=== PATIENT | female | born 1990 | race Caucasian/White ===

== ENCOUNTER 2016-06-05 18:36 | Outpatient (CLI) | payer MEDICAID ==
--- NOTE | 2016-06-06 15:02 | US ---
EXAM DATE: 06/05/16 PATIENT'S AGE: 26 Patient: RADHA WEEKS Facility: [place], [place] Site . Site : 1990 Study: US OB Pelvis [id number]/28/2017 11:57:21 PM Ordering Physician: Dave Gagnon Final Report: CLINICAL HISTORY: Cervical length. TECHNIQUE: Real time schroeder scale imaging of the fetus was performed. FINDINGS: Sonographic imaging demonstrates a single living intrauterine gestation. Fetus demonstrates a regular cardiac rate of 137 beats per minute. Cervical length measures 4 centimeters. The cervix is closed. IMPRESSION: Cervical length measures 4 cm Dictated by Niurka Doyle MD @ Jun 06 2016 8:30AM (Electronic Signature) Report Signed by Proxy and Original Signed Document filed in the Medical Record. JOSE GUADALUPE
== END 2016-06-05 22:25 | disposition home or self-care (01) ==
LOC: MW.OBCHECK 18:36 → MW.OB 18:38 → MW.OBCHECK 22:25
PROVIDERS: ATTEND Obstetrics & Gynecology
DX: O26.892 Other specified pregnancy related conditions, second trimester (principal); R10.9 Unspecified abdominal pain; Z3A.24 24 weeks gestation of pregnancy
CPT/HCPCS: 59025; 76817; 76817-26; 81001; 87086; 87480; 87491; 87510; 87591; 87660

== ENCOUNTER 2016-09-28 03:46 | Inpatient (IN) | payer OTHER, MEDICAID ==
[2016-09-28] MEDS ORDERED: Misoprostol 200 MCG Tab PO PRN (08:16)
[2016-09-28] MEDS ORDERED: Lidocaine 1% 50 ML MDV INJECT PRN (08:16)
[2016-09-28] MEDS ORDERED: Methylergonovine 0.2 MG/1 ML Amp IM PRN (08:16)
[2016-09-28] MEDS ORDERED: Sodium Chloride 0.9% 2.5 ML Syringe FLUSH PRN (08:16)
[2016-09-28] MEDS ORDERED: Water For Irrigation,Sterile 1,000 ML Container IRR PRN (08:16)
[2016-09-28] MEDS ORDERED: Nalbuphine 10 MG/1 ML Vial IVPUSH PRN (08:16)
[2016-09-28] MEDS ORDERED: Butorphanol 1 MG/ML SDV IVPUSH PRN (08:16)
[2016-09-28] MEDS ORDERED: Sodium Chloride 0.9% 10 ML Syringe FLUSH PRN (08:16)
[2016-09-28] MEDS ORDERED: Carboprost Tromethamine 250 MCG/1 ML Amp IM PRN (08:16)
[2016-09-28] MEDS ORDERED: Oxytocin/Lactated Ringers 30 UNIT/500 ML BAG IV SCH ×2 (08:30→15:15)
[2016-09-28] MEDS: Lactated Ringers 1,000 ML IV SCH ×3 (08:41→15:00)
[2016-09-28] MEDS ORDERED: fentaNYL 100 MCG/2 ML SDV ONE (09:00)
[2016-09-28] MEDS ORDERED: Ropivacaine HCl/PF 100 ML ONE (09:00)
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
[2016-09-28] MEDS ORDERED: Terbutaline 1 MG/ML SDV SUBCUT PRN (15:04)
[2016-09-28] MEDS ORDERED: Acetaminophen 325 MG Tab PO ONE (20:50)
[2016-09-29] MEDS ORDERED: Acetaminophen 500 MG Tab PO PRN (01:14)
[2016-09-29] MEDS ORDERED: oxyCODONE 5 MG Tab PO PRN (01:14)
[2016-09-29] MEDS ORDERED: Lanolin 100% Cream 7 GM Tube TOP PRN (01:14)
[2016-09-29] MEDS ORDERED: Bisacodyl 10 MG Supp RECTAL PRN (01:14)
[2016-09-29] MEDS ORDERED: Docusate Sodium 100 MG Cap PO PRN (01:14)
[2016-09-29] MEDS: Ibuprofen 800 MG Tab PO PRN ×2 (02:42→11:22)
[2016-09-29] MEDS: Benzocaine/Menthol 20%-0.5% Spray 78 GM Cannister TOP PRN (02:56)
[2016-09-29] MEDS: Witch Hazel Medicated Pads 40/Jar TOP PRN (02:57)
--- NOTE | 2016-09-29 07:59 | OR ---
SURGEON: Cheyanne Eden DATE OF PROCEDURE: 09/29/2016 PRE-DELIVERY HISTORY: This is a 26-year-old, G1, who presented to Labor and Delivery with painful regular uterine contractions. The patient was observed to make cervical change from 3 cm to 4 cm at admission. The patient was noted to be 40 weeks and 6 days on admission. heart tracing was significant for category 1 status and reactive, and the patient was tad anywhere from 2 to 4 minutes. The patient did undergo amniotomy at admission and was found to have meconium- stained amniotic fluids. The patient eventually did receive an epidural. On further cervical exams, the patient's cervix was noted to not have made significant cervical place change roof bolter several exams, and the patient's labor was augmented with IV Pitocin at 5 to 6 cm. The patient eventually did progress to complete status and started maternal expulsive efforts after feeling a continuous rectal-type pressure. PREOPERATIVE DIAGNOSES: 1. Intrauterine at 41 weeks. 2. GBS negative. 3. Augmented labor. POSTOPERATIVE DIAGNOSES: 1. Intrauterine at 41 weeks. 2. Delivered status. 3. Midline second-degree perineal laceration. 4. GBS negative. 5. Augmented labor. PROCEDURES PERFORMED: 1. Spontaneous-assisted vaginal delivery. 2. Repair of midline second-degree perineal laceration. ANESTHESIA: Epidural and local. ESTIMATED BLOOD LOSS: 350 mL. FINDINGS: Viable male infant in vertex presentation with score of 8 and 9 at 1 and 5 minutes respectively and weight of 3880 grams. Normal intact placenta with 3- vessel cord. Midline second-degree perineal laceration. COMPLICATIONS: None known. DISPOSITION: Mom and tolerated the procedure well. DESCRIPTION OF PROCEDURE: This female, under epidural anesthesia, delivered a viable male with score of 8 and 9 at 1 and 5 minutes respectively and weight of 3880 grams. Delivery was via spontaneous-assisted vaginal delivery with in vertex presentation. Upon delivery of vertex, the neck was checked. There was no nuchal to be reduced and with gentle downward traction, anterior shoulder was delivered followed by the body. The infant was bulb suctioned at delivery and was found to have excellent tone and eventually had spontaneous cry. At maternal request, was placed directly on mom's abdomen. While placing baby on mom's abdomen, it was noted that the cord was wrapped around the 's left wrist twice and it was eventually reduced. Cord was clamped and cut after pulsation ceased at maternal request. Cord blood was collected and sent for analysis. After delivery of infant, IV Pitocin was given in bolus fashion as an uterotonic to prevent excessive maternal blood loss and to help expel the placenta. With signs of placental separation, fundal massage was completed along with traction on the umbilical cord, and a normal intact placenta with 3-vessel cord was delivered. After delivery of placenta, the patient was noted to have some excess bleeding, so the fundus was vigorously massaged. The patient also underwent a pelvic exam which was significant just for, what was felt to be, a minimally-contracted lower uterine segment. Uterus was noted to be firm. This happened twice, and the patient did receive 1 dose of IM Methergine. This happened one more time after. The fundus was continued to be massaged. Eventually, bleeding was within normal limits for lochia. After delivery of the infant and placenta, the vagina, perineum, and rectum were explored. The patient had midline second- degree perineal laceration. The irregular tear laceration was repaired with 4-0 Vicryl suture in a subcuticular fashion, and the midline second-degree perineal laceration was repaired with 3-0 Vicryl suture in the usual 3-layer fashion. After repair, the lower uterine segment and vagina were cleared of all clots and debris. The patient was cleansed, pads were changed, and the bed was returned to functioning status. The patient and tolerated the procedure well. Sponge, lap, needle, and instrument counts were correct. AIDAN / CONOR /[id number] JOSE GUADALUPE
--- NOTE | 2016-09-29 10:04 | PCM48HPAN ---
Post Anesthesia Note - EVALUATION WITHIN 48HRS OF ANESTHETIC Vital Signs in Normal Range: Yes Patient Participated in Evaluation: Yes Respiratory Function Stable: Yes Airway Patent: Yes Cardiovascular Function Stable: Yes Hydration Status Stable: Yes Pain Control Satisfactory: Yes Nausea and Vomiting Control Satisfactory: Yes Mental Status Recovered: Yes
[2016-09-30] MEDS: Ibuprofen 800 MG Tab PO PRN ×3 (00:41→20:45)
--- NOTE | 2016-09-30 07:30 | PCM.PNPP ---
- General Info Date of Service: 09/30/16 Functional Status: Reports: Pain Controlled, Tolerating Diet, Ambulating, Urinating - Review of Systems General: Reports: No Symptoms HEENT: Reports: No Symptoms Pulmonary: Reports: No Symptoms Cardiovascular: Reports: No Symptoms Gastrointestinal: Reports: No Symptoms Genitourinary: Reports: No Symptoms Musculoskeletal: Reports: No Symptoms Skin: Reports: No Symptoms Neurological: Reports: No Symptoms Psychiatric: Reports: No Symptoms - General Info Date of Service: 09/30/16 - Patient Data Vital Signs - most recent: Last Vital Signs Temp 36.2 C 09/30/16 04:00 Pulse 89 09/30/16 04:00 Resp 15 09/30/16 04:00 BP 97/65 09/30/16 04:00 Pulse Ox 97 09/30/16 04:00 Weight - most recent: 64.864 kg Lab Results - last 24 hrs: Laboratory Results - last 24 hr 09/30/16 Range/Units 06:02 Hgb 10.6 L (12.0-16.0) g/dL Hct 31.2 L (36.0-46.0) % Med Orders - Current: Current Medications Acetaminophen (Tylenol Extra Strength) 500 mg PO Q4H PRN PRN Reason: Pain Last Admin: 09/29/16 14:39 Dose: 500 mg Benzocaine/Menthol (Dermoplast Pain Relief 20%-0.5% [place]) 78 gm TOP ASDIRECTED PRN PRN Reason: Perineal Comfort Measure Last Admin: 09/29/16 02:56 Dose: 1 spray Bisacodyl (Dulcolax) 10 mg RECTAL .ONCE PRN PRN Reason: Constipation Butorphanol Tartrate (Stadol) 1 mg IVPUSH Q1H PRN PRN Reason: Pain Last Admin: 09/28/16 08:30 Dose: 1 mg Carboprost Tromethamine (Hemabate Ds) 250 mcg IM ASDIRECTED PRN PRN Reason: Post Hemorrhage Docusate Sodium (Colace) 100 mg PO BID PRN PRN Reason: Constipation Emollient Ointment (Lansinoh Hpa) 0 gm TOP ASDIRECTED PRN PRN Reason: Sore Nipples Lactated Ringer's (Ringers, Lactated) 1,000 mls @ 150 mls/hr IV ASDIRECTED MASOOD Last Admin: 09/28/16 15:00 Dose: 999 mls/hr Oxytocin/Lactated Ringer's (Pitocin In Lr 30 Units/500 Ml) 30 unit in 500 mls @ 2 mls/hr IV TITRATE MASOOD; 2 MUNITS/MIN PRN Reason: Protocol Last Titration: 09/29/16 00:05 Dose: 500 munits/min, 500 mls/hr Ibuprofen (Motrin) 800 mg PO Q6H PRN PRN Reason: Pain Last Admin: 09/30/16 00:41 Dose: 800 mg Lidocaine HCl (Xylocaine 1%) 50 ml INJECT .ONCE PRN PRN Reason: Laceration repair Last Admin: 09/29/16 00:19 Dose: 50 ml Methylergonovine Maleate (Methergine) 0.2 mg IM ASDIRECTED PRN PRN Reason: Post Hemorrhage Last Admin: 09/29/16 00:13 Dose: 0.2 mg Misoprostol (Cytotec) 200 mcg PO .ONCE PRN PRN Reason: Post Hemorrhage Oxycodone HCl (Oxycodone) 5 mg PO Q2H PRN PRN Reason: Pain Sodium Chloride (Saline Flush) 10 ml FLUSH ASDIRECTED PRN PRN Reason: Keep Vein Open Sodium Chloride (Saline Flush) 2.5 ml FLUSH ASDIRECTED PRN PRN Reason: Keep Vein Open Sterile Water (Sterile Water For Irrigation) 1,000 ml IRR ASDIRECTED PRN PRN Reason: delivery Last Admin: 09/29/16 00:05 Dose: 1,000 ml Terbutaline Sulfate (Brethine) 0.25 mg SUBCUT ASDIRECTED PRN PRN Reason: Tacysystole Witch Margarita (Tucks) 1 pad TOP ASDIRECTED PRN PRN Reason: comfort care Last Admin: 09/29/16 02:57 Dose: 1 applic Discontinued Medications Acetaminophen (Tylenol) 650 mg PO NOW ONE Stop: 09/28/16 20:51 Last Admin: 09/28/16 21:11 Dose: 650 mg Fentanyl (Sublimaze) Confirm Administered Dose 100 mcg .ROUTE .STK-MED ONE Stop: 09/28/16 09:01 Last Admin: 09/29/16 21:01 Dose: Not Given Oxytocin/Lactated Ringer's (Pitocin In Lr 30 Units/500 Ml) 30 unit in 500 mls @ 250 mls/hr IV TITRATE MASOOD PRN Reason: 250 MUNITS/MIN Stop: 09/28/16 10:29 Last Admin: 09/29/16 21:00 Dose: Not Given Ropivacaine (Naropin 0.2%) Confirm Administered Dose 100 mls @ as directed .ROUTE .STK-MED ONE Stop: 09/28/16 09:01 Last Admin: 09/29/16 21:01 Dose: Not Given Ropivacaine/Fentanyl/NS (Fentanyl 2 Mcg-Ropiv 0.2%-Ns) Confirm Administered Dose 100 mls @ as directed .ROUTE .STK-MED ONE Stop: 09/28/16 17:19 Last Admin: 09/29/16 21:01 Dose: Not Given Nalbuphine HCl (Nubain) 10 mg IVPUSH Q1H PRN PRN Reason: Pain (severe 7-10) Stop: 09/28/16 10:17 - Interaction Infant Disposition, : [place] in Room with Family Infant Interaction: Holding Infant Infant Feeding: Attempted ; Nursed Fair/Poor Support Person: Significant Other - Recovery Exam Fundal Tone: Firm Fundal Level: 1 Fingerbreadths Below Umbilicus Fundal Placement: Midline Lochia Amount: Scant Lochia Color: Rubra/Red Perineum Description: Other (see below) Other Perinuem Description: 2nd degree laceration Episiotomy/Laceration: Approximated Bladder Status: Voiding - Exam General: alert, oriented Neck: supple Lungs: Clear to Auscultation, Normal Respiratory Effort Cardiovascular: Regular Rate, Regular Rhythm GI/Abdominal Exam: Normal Bowel Sounds, Soft, Non-Tender Extremities: Normal Inspection, Normal Range of Motion, Non-Tender Skin: warm, dry, intact Neurological: no new focal deficit Psy/Mental Status: alert, normal affect, normal mood - Problem List & Annotations (1) Vaginal delivery SNOMED Code(s): 888549911 Code(s): O80 - ENCOUNTER FOR FULL-TERM UNCOMPLICATED DELIVERY Status: Acute Current Visit: Yes - Problem List Review Problem List Initiated/Reviewed/Updated: Yes - My Orders Last 24 Hours: My Active Orders 09/29/16 Breakfast Regular Diet [DIET] - Assessment Assessment:: PPD#1 S/p SAVD Doing well [place] having problems nursing Unsure if she desires discharge home today or tomorrow - Plan Plan:: Increase ambulation Routine pp care Pt will let us know if she desires to go home today
[2016-10-01] MEDS: Ibuprofen 800 MG Tab PO PRN (04:27)
--- NOTE | 2016-10-01 07:14 | PCM.PNPP ---
- General Info Date of Service: 10/01/16 Functional Status: Reports: Pain Controlled, Tolerating Diet, Ambulating, Urinating - Review of Systems General: Reports: No Symptoms HEENT: Reports: No Symptoms Pulmonary: Reports: No Symptoms Cardiovascular: Reports: No Symptoms Gastrointestinal: Reports: No Symptoms Genitourinary: Reports: No Symptoms Musculoskeletal: Reports: No Symptoms Skin: Reports: No Symptoms Neurological: Reports: No Symptoms Psychiatric: Reports: No Symptoms - General Info Date of Service: 10/01/16 - Patient Data Vital Signs - most recent: Last Vital Signs Temp 36.7 C 10/01/16 04:00 Pulse 65 10/01/16 04:00 Resp 14 10/01/16 04:00 BP 102/64 10/01/16 04:00 Pulse Ox 99 10/01/16 04:00 Weight - most recent: 64.864 kg Med Orders - Current: Current Medications Acetaminophen (Tylenol Extra Strength) 500 mg PO Q4H PRN PRN Reason: Pain Last Admin: 09/29/16 14:39 Dose: 500 mg Benzocaine/Menthol (Dermoplast Pain Relief 20%-0.5% [place]) 78 gm TOP ASDIRECTED PRN PRN Reason: Perineal Comfort Measure Last Admin: 09/29/16 02:56 Dose: 1 spray Bisacodyl (Dulcolax) 10 mg RECTAL .ONCE PRN PRN Reason: Constipation Butorphanol Tartrate (Stadol) 1 mg IVPUSH Q1H PRN PRN Reason: Pain Last Admin: 09/28/16 08:30 Dose: 1 mg Carboprost Tromethamine (Hemabate Ds) 250 mcg IM ASDIRECTED PRN PRN Reason: Post Hemorrhage Docusate Sodium (Colace) 100 mg PO BID PRN PRN Reason: Constipation Last Admin: 09/30/16 20:45 Dose: 100 mg Emollient Ointment (Lansinoh Hpa) 0 gm TOP ASDIRECTED PRN PRN Reason: Sore Nipples Lactated Ringer's (Ringers, Lactated) 1,000 mls @ 150 mls/hr IV ASDIRECTED MASOOD Last Admin: 09/28/16 15:00 Dose: 999 mls/hr Oxytocin/Lactated Ringer's (Pitocin In Lr 30 Units/500 Ml) 30 unit in 500 mls @ 2 mls/hr IV TITRATE MASOOD; 2 MUNITS/MIN PRN Reason: Protocol Last Titration: 09/29/16 00:05 Dose: 500 munits/min, 500 mls/hr Ibuprofen (Motrin) 800 mg PO Q6H PRN PRN Reason: Pain Last Admin: 10/01/16 04:27 Dose: 800 mg Lidocaine HCl (Xylocaine 1%) 50 ml INJECT .ONCE PRN PRN Reason: Laceration repair Last Admin: 09/29/16 00:19 Dose: 50 ml Methylergonovine Maleate (Methergine) 0.2 mg IM ASDIRECTED PRN PRN Reason: Post Hemorrhage Last Admin: 09/29/16 00:13 Dose: 0.2 mg Misoprostol (Cytotec) 200 mcg PO .ONCE PRN PRN Reason: Post Hemorrhage Oxycodone HCl (Oxycodone) 5 mg PO Q2H PRN PRN Reason: Pain Sodium Chloride (Saline Flush) 10 ml FLUSH ASDIRECTED PRN PRN Reason: Keep Vein Open Sodium Chloride (Saline Flush) 2.5 ml FLUSH ASDIRECTED PRN PRN Reason: Keep Vein Open Sterile Water (Sterile Water For Irrigation) 1,000 ml IRR ASDIRECTED PRN PRN Reason: delivery Last Admin: 09/29/16 00:05 Dose: 1,000 ml Terbutaline Sulfate (Brethine) 0.25 mg SUBCUT ASDIRECTED PRN PRN Reason: Tacysystole Witch Margarita (Tucks) 1 pad TOP ASDIRECTED PRN PRN Reason: comfort care Last Admin: 09/29/16 02:57 Dose: 1 applic Discontinued Medications Acetaminophen (Tylenol) 650 mg PO NOW ONE Stop: 09/28/16 20:51 Last Admin: 09/28/16 21:11 Dose: 650 mg Fentanyl (Sublimaze) Confirm Administered Dose 100 mcg .ROUTE .STK-MED ONE Stop: 09/28/16 09:01 Last Admin: 09/29/16 21:01 Dose: Not Given Oxytocin/Lactated Ringer's (Pitocin In Lr 30 Units/500 Ml) 30 unit in 500 mls @ 250 mls/hr IV TITRATE MASOOD PRN Reason: 250 MUNITS/MIN Stop: 09/28/16 10:29 Last Admin: 09/29/16 21:00 Dose: Not Given Ropivacaine (Naropin 0.2%) Confirm Administered Dose 100 mls @ as directed .ROUTE .STK-MED ONE Stop: 09/28/16 09:01 Last Admin: 09/29/16 21:01 Dose: Not Given Ropivacaine/Fentanyl/NS (Fentanyl 2 Mcg-Ropiv 0.2%-Ns) Confirm Administered Dose 100 mls @ as directed .ROUTE .STK-MED ONE Stop: 09/28/16 17:19 Last Admin: 09/29/16 21:01 Dose: Not Given Nalbuphine HCl (Nubain) 10 mg IVPUSH Q1H PRN PRN Reason: Pain (severe 7-10) Stop: 09/28/16 10:17 - Interaction Infant Disposition, : [place] in Room with Family Infant Interaction: Holding Infant Feeding: Attempted ; Nursed Fair/Poor Support Person: Significant Other - Recovery Exam Fundal Tone: Firm Fundal Level: 1 Fingerbreadths Below Umbilicus Fundal Placement: Midline Lochia Amount: Scant Lochia Color: Rubra/Red Perineum Description: Other (see below) Other Perinuem Description: 2nd degree laceration Episiotomy/Laceration: Approximated Bladder Status: Voiding Urinary Elimination: Voided - Exam General: alert, oriented Neck: supple Lungs: Clear to Auscultation, Normal Respiratory Effort Cardiovascular: Regular Rate, Regular Rhythm GI/Abdominal Exam: Soft, Non-Tender Extremities: Normal Inspection Skin: warm, dry, intact Neurological: no new focal deficit Psy/Mental Status: alert, normal affect, normal mood - Problem List & Annotations (1) Vaginal delivery SNOMED Code(s): 990932437 Code(s): O80 - ENCOUNTER FOR FULL-TERM UNCOMPLICATED DELIVERY Status: Acute Current Visit: Yes - Problem List Review Problem List Initiated/Reviewed/Updated: Yes - Assessment Assessment:: PPD#2 S/p SAVD Doing well Ready for discharge home today - Plan Plan:: Discharge home today with follow up in 6wks Pelvic rest for 6wks Bleeding precautions given Infection precautions given Thrombotic precautions given blues/precautions given
[2016-10-01 08:36] VITALS: BP 114/68
[2016-10-01] MEDS: Benzocaine/Menthol 20%-0.5% Spray 78 GM Cannister TOP PRN (09:45)
[2016-10-01] MEDS: Witch Hazel Medicated Pads 40/Jar TOP PRN (09:46)
== END 2016-10-01 10:20 | disposition home or self-care (01) | DRG 775 ==
LOC: MW.OBCHECK 03:46 → MW.OB 03:48 → MW.OBCHECK 08:16 → OBSVTOIN 09-29 00:02 → MW.OB 09-29 04:15
PROVIDERS: ADMIT Obstetrics & Gynecology; ATTEND Obstetrics & Gynecology
PROC: 10E0XZZ Delivery of Products of Conception, External Approach (ICD-10-PCS; principal; 2016-09-29)
PROC: 0KQM0ZZ Repair Perineum Muscle, Open Approach (ICD-10-PCS; 2016-09-29)
PROC: 10907ZC Drainage of Amniotic Fluid, Therapeutic from Products of Conception, Via Natural or Artificial Opening (ICD-10-PCS; 2016-09-29)
DX: O70.1 Second degree perineal laceration during delivery (principal); Z37.0 Single live birth; O48.0 Post-term pregnancy; O77.0 Labor and delivery complicated by meconium in amniotic fluid; Z3A.41 41 weeks gestation of pregnancy
CPT/HCPCS: 01967; 36415; 59025; 85014; 85018; 85027; 86850; 86900; 86901; A9270-GY; J0595; J2210; J2795; J3010; J7120